=== PATIENT | male | born 1980 | race Caucasian/White ===

== ENCOUNTER 2017-06-19 18:05 | Emergency (ER) | payer OTHER ==
[2017-06-19 18:11] VITALS: TEMP 98.1
--- NOTE | 2017-06-19 18:51 | EDPHY ---
H & P Time Seen by Provider: 06/19/17 18:45 HPI/ROS: CHIEF COMPLAINT: Laceration right foot HISTORY OF PRESENT ILLNESS: 36-year-old immunocompetent male with out-of-date tetanus sustained accidental laceration to the plantar aspect of his right foot when he stepped on a sharp metal edge. This occurred when he was barefoot did not puncture the sole of a shoe. Occurred earlier today. No paresthesia. No sensory motor deficit. No foreign body. PHYSICAL EXAM (Prior to examination, patient consented to physical exam, hands were washed and my usual and customary physical exam procedures followed) 1) GENERAL: Well-developed, well-nourished, alert and oriented. Appears to be in no acute distress. 2) HEAD: Normocephalic 3) HEENT: sclera anicteric 4) LUNGS: Breathing comfortably. 5) SKIN: right foot forefoot plantar aspect, laterally, 4 cm well-demarcated laceration. Not through and through. 6) MUSCULOSKELETAL: dorsiflexion plantar flexion present with no deficits. DP PT pulses present and brisk with brisk capillary refill. 7) NEUROLOGIC: Full sensation in all digits Smoking Status: Never smoked Constitutional: Initial Vital Signs Temperature (C) 36.7 C 06/19/17 18:09 Heart Rate 61 06/19/17 18:09 Respiratory Rate 17 06/19/17 18:09 Blood Pressure 119/63 06/19/17 18:09 O2 Sat (%) 98 06/19/17 18:09 O2 Delivery Mode Room Air Allergies/Adverse Reactions: No Known Allergies Allergy (Unverified 06/19/17 18:08) Home Medications: Medication Instructions Recorded Cephalexin [Keflex] 500 mg PO QID 5 Days cap 06/19/17 MDM/Departure - MDM Procedures: Procedure: Laceration repair. I explained the indications, risks and benefits for both laceration repair and anesthetic administration. Verbal consent was obtained from the patient . The laceration on the right plantar foot was anesthetized using 0.5% bupivicaine without epinephrine . After anesthetic administered the patient was observed for a period of time and had no apparent adverse effects. The wound was cleaned , prepped, draped in normal sterile fashion and explored to its base. No foreign body seen, no foreign bodies palpated. There were no deep structures involved. The wound was repaired with 6 simple interrupted 4 0 Prolene suture . The wound repair was simple. The procedure was performed by myself. Patient has been informed that scarring will occur, although efforts have been made to minimize this. ED Course/Re-evaluation: Patient started on prophylactic antibiotics given location of his wound. This occurred when the patient was barefoot . - Depart Disposition: Home, Routine, Self-Care Clinical Impression: Laceration of right foot Qualifiers: Encounter type: initial encounter Qualified Code(s): S91.311A - Laceration without foreign body, right foot, initial encounter Condition: Good Instructions: Care For Your Stitches (ED), Laceration (ED) Additional Instructions: Return to the ER if you develop redness, swelling, discharge, warmth to the wound, red streaks going up your leg, or any other symptoms that concern you. Prescriptions: Cephalexin [Keflex] 500 mg PO QID 5 Days cap Referrals: Return, to the ER in 14 days for suture removal [Other] - As per Instructions
[2017-06-19 19:44] VITALS: BP 132/74; PULSE 68; RESP 16; O2SAT 94
== END 2017-06-19 19:43 | disposition home or self-care (01) ==
PROC: 0HQMXZZ Repair Right Foot Skin, External Approach (ICD-10-PCS; principal; 2017-06-19)
DX: S91.311A Laceration without foreign body, right foot, initial encounter (principal); W45.8XXA Other foreign body or object entering through skin, initial encounter
CPT/HCPCS: L3260

== ENCOUNTER 2017-11-01 21:54 | Emergency (ER) | payer OTHER ==
[2017-11-01 21:59] VITALS: BP 152/98; PULSE 78; RESP 16; TEMP 99; O2SAT 96
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
== END 2017-11-01 22:53 ==
DX: R45.851 Suicidal ideations (principal); F10.920 Alcohol use, unspecified with intoxication, uncomplicated; V48.5XXA Car driver injured in noncollision transport accident in traffic accident, initial encounter; Y92.410 Unspecified street and highway as the place of occurrence of the external cause; Y99.8 Other external cause status; Y93.89 Activity, other specified